=== PATIENT | male | born 1940 | race Caucasian/White ===

== ENCOUNTER 2018-01-02 08:22 | Outpatient (CLI) | payer MEDICARE ==
--- NOTE | 2018-01-02 11:52 | ULT ---
HEPATIC ULTRASOUND WITH DOPPLER: (Pierre scale, color flow, and spectral Doppler) Date: 01/02/18 FINDINGS: There is a 1.3 x 1.2 x 1.1 cm heterogeneous focus in the region of the left lobe of the liver. This c annot be said with certainty if this is real or artifactual from adjacent bowel. The 2.6 cm cyst in t he left lobe noted on the CT scan of 01/24/15 is not seen on this study. No intrahepatic ductal dilat ation is noted. The spleen measures 10.7 cm in length and is normal. No gallstones, gallbladder wall thickening, or p ericholecystic fluid is seen. The common duct measures 2.0 mm in diameter. The visualized portions of the pancreas are unremarkable. No free fluid is noted. There is normal flow and spectral waveforms i n the hepatic, portal, and splenic vasculature. IMPRESSION: Heterogeneous focus in the region of the left lobe of the liver. Recommend further evaluation with a triple phase CT scan of the abdomen. POS: [facility]
== END 2018-01-02 08:23 | disposition home or self-care (01) ==
LOC: BICULT 08:22
PROVIDERS: ATTEND Internal Medicine Gastroenterology
DX: S36.119A Unspecified injury of liver, initial encounter (principal); J02.9 Acute pharyngitis, unspecified
CPT/HCPCS: 76705

== ENCOUNTER 2018-12-11 20:38 | Emergency (ER) | payer MEDICARE ==
[2018-12-11] MEDS ORDERED: Adacel (T-DAP) 0.5 ML SYRINGE ONE (20:54)
--- NOTE | 2018-12-11 22:01 | CT ---
CT Brain WO Con History: Fall. Laceration. Comparison: CT brain 2015 Findings: No acute hemorrhage or infarct. No midline shift or mass effect. Ventricular size and extra -axial CSF spaces are normal. Old right cerebellar infarction. Paranasal sinuses and mastoids are clear. Mild right supraorbital soft tissue swelling. Visualized gl obes are intact. Impression: No acute posttraumatic intracranial sequelae.
[2018-12-11] MEDS ORDERED: Lidocaine 1% w/Epinephrine 1:100K 20 ML VIAL ONE (22:18)
[2018-12-11] MEDS ORDERED: Bacitracin 1 PK ONE (22:32)
== END 2018-12-11 22:41 ==
LOC: ERS 20:38
DX: S01.111A Laceration without foreign body of right eyelid and periocular area, initial encounter (principal); Z87.891 Personal history of nicotine dependence; W18.30XA Fall on same level, unspecified, initial encounter
CPT/HCPCS: 12011; 36415; 70450; 80307; 90471; 90715

== ENCOUNTER 2019-03-02 13:28 | Observation (INO) | payer MEDICARE ==
[~2019-03-02 13:28] MED LIST: Iopamidol-370 76% 500 ML 1 ML ONE
[2019-03-02 13:57] LABS: #Eosinphils 0.1 thou/uL (0.0-0.7); #Lymphocytes 2.6 thou/uL (1.20-3.40); #Neutrophils 10.4 thou/uL (1.40-6.50); %Basophils 0.2 % (0.0-1.0); %Lymphocytes 18.3 % (21.0-51.0); %Monocytes 7.1 % (0.0-10.0); %Neutrophils 73.4 % (42.0-75.0); Hemoglobin 14.3 g/dL (14.0-18.0); Mean Corpuscular HGB CONC 34.7 g/dL (32.0-36.0); Mean Corpuscular Hemoglobin 32.5 pg (27.0-31.0); Mean Corpuscular Volume 93.6 fL (78.0-98.0); Mean Platelet Volume 6.8 fL (7.4-10.4); Platelet Count 276 thou/uL (130-400); RBC Distribution Width 11.3 % (11.5-14.5); Red Blood Cell (RBC) Count 4.41 mill/uL (4.70-6.10); White Blood Cell (WBC) Count 14.2 thou/uL (4.8-10.8)
[2019-03-02 14:19] LABS: ALT (SGPT) 14 U/L (8-55); AST (SGOT) 16 U/L (5-34); Albumin 3.9 g/dL (3.4-4.8); Alkaline Phosphatase 68 U/L (40-110); Anion Gap 11 mmol/L (10-20); BUN (Urea Nitrogen) 10 mg/dL (8.4-25.7); Calc. Creatinine Clearance 0 mL/min (70-130); Calcium 8.7 mg/dL (7.8-10.44); Carbon Dioxide 25 mmol/L (23-31); Chloride 105 mmol/L (98-107); Estimated GFR-MDRD 55; Globulin 2.9 g/dL (2.4-3.5); Glucose 134 mg/dL (83-110); Potassium 3.8 mmol/L (3.5-5.1); Protein, Total 6.8 g/dL (5.8-8.1); Sodium 137 mmol/L (136-145)
[2019-03-02 14:34] LABS: Bilirubin Negative (Negative); Blood, Urine Negative (Negative); Clarity Clear (Clear); Glucose, Urine (Dipstick) Normal (Negative); Leukocyte Negative Leu/uL (Negative); Nitrite Negative (Negative); Protein, Urine (Dipstick) 10 mg/dL (Neg-Trace); Urobilinogen Normal mg/dL (Less than 2)
[2019-03-02] MEDS ORDERED: Morphine 4 MG/ML VIAL ONE ×2 (16:37→18:12)
[2019-03-02] MEDS ORDERED: Ondansetron PF 4 MG/2 ML Vial ONE (16:38)
--- NOTE | 2019-03-02 16:57 | RAD ---
Portable frontal chest radiograph: 03/02/2019 COMPARISON: 01/25/2015 HISTORY: Abdominal pain FINDINGS: Stable transvenous pacing device. Stable increased linear interstitial density with pulmona ry hyperinflation suggests COPD in the proper clinical setting. No pneumothorax, focal consolidation, or alveolar edema. There is slight blunting of the left costophrenic angle which may r epresent volume loss, scar, or small volume left pleural fluid. IMPRESSION: No focal consolidation or alveolar edema.
--- NOTE | 2019-03-02 17:29 | CT ---
CT angiogram of the chest and abdomen-dissection protocol: 03/02/2019 COMPARISON: None HISTORY: Tearing abdominal pain radiating to the back TECHNIQUE: Axial CT imaging at 2.5 mm intervals from the thoracic inlet through the superior aspect o f the sacrum with IV contrast using CT angiogram protocol. Coronal and sagittal 3-D reformatted imaging obtained. FINDINGS: No lymphadenopathy is noted within the chest. No pleural, pericardial, or mediastinal fluid is noted. There is a dual lead transvenous pacing device. No pneumothorax is noted. Emphysematous changes are noted with an upper lobe predominance bilaterally . There is an irregular cluster of reticular nodular density within the lingula, best seen on image 65, new when compared to a chest CT angiogram performed 01/24/2015. There is a pulmonary nodule on im age 61 within the left upper lobe measuring 6 mm, slightly increased in size when compared to the prior CT angiogram of the chest. No discrete pulmonary parenchymal mass lesion or nodule is noted within the right lung. Osseous structures of the chest demonstrate no acute findings. There is no evidence for aneurysm or d issection of the thoracic aorta. There is scattered atherosclerotic calcification of the descending thoracic aorta and coronary arteries. There is a subcentimeter hypodense lesion within the left lobe of the liver on image 94, too small to characterize, likely representing a small cyst. Limited assessment of the gallbladder is unremarkable. The spleen, pancreas, adrenal glands, and kidneys are unremarkable. There is diverticulosis of the descending colon with no evidence for diverticulitis. Only partially i lilibeth on this examination is a focal area of inflammatory change within the right lower quadrant adjacent to an incompletely imaged appendix. This may be related to appendicitis. CT examination of t he pelvis is advised. There is no evidence for aneurysm or dissection of the abdominal aorta. There is scattered atheroscle rotic calcification of the abdominal aorta and its branches. The celiac axis, the superior mesenteric artery, bilateral renal arteries, and the inferior mesenteri c artery are patent. There is multilevel lower lumbar spine facet hypertrophy. IMPRESSION: Right lower quadrant inflammatory change. Dedicated imaging of the pelvis is advised. This may be rel ated to appendicitis. No evidence for aneurysm or dissection of the abdominal or thoracic aorta. Left upper lobe pulmonary nodule for which follow-up CT examination of the chest in 6 months advised. Results called to Dr. An at 5:23 PM 03/02/2019.
--- NOTE | 2019-03-02 18:15 | CT ---
CT pelvis: 03/02/2019 HISTORY: Right lower quadrant inflammatory change noted on recent CT of the abdomen TECHNIQUE: Axial CT imaging at 5 mm intervals through the pelvis with coronal and sagittal reformatte d imaging. FINDINGS: There is atherosclerotic calcification of the distal abdominal aorta. Prostate gland is prominent. There is extensive diverticulosis of the descending and sigmoid colon. T here is prominent right lower quadrant inflammatory fat stranding. This abuts the appendix but the appendix appears grossly unremarkable otherwise. The sigmoid colon demonstrates wall thickening and t hus these findings are felt to most likely be on the basis of acute sigmoid diverticulitis. No right lower quadrant abscess is appreciated at this time. The exuberant prominent diverticula make it difficult to evaluate for microperforation. There could be a focal area of microperforation along the right lateral aspect of the inflamed sigmoid colon on axial image 16 but this could also simply r epresent a prominent diverticulum. Review of the osseous structures demonstrates prominent multilevel lower lumbar spine facet hypertrop hy. No worrisome lytic or blastic bone lesion. IMPRESSION: Findings most consistent with sigmoid diverticulitis within the right lower quadrant as d etailed above. Direct visualization via colonoscopy is advised following treatment of the acute symptoms.
[2019-03-02] MEDS ORDERED: Acetaminophen 325 MG TAB PO PRN (18:54)
[2019-03-02] MEDS ORDERED: Ondansetron PF 4 MG/2 ML Vial IVP PRN (19:09)
[2019-03-02] MEDS ORDERED: metroNIDAZOLE 500 MG/100 ML BAG ONE (19:38)
--- NOTE | 2019-03-02 19:45 | HP ---
CHIEF COMPLAINT: Abdominal pain. HISTORY OF PRESENT ILLNESS: This is an 78-year-old male with history of symptomatic bradycardia status post pacemaker in 2015, daily Valium and alcohol use, who presents to the emergency room with a complaint of abdominal pain. The patient reports the onset around 3:00 am, states he thought it was muscle pain from digging 2 days ago. He reports the pain is in his lower abdomen, worsening with movement, denies any relieving factors. He describes it as pressure without radiation and denies any prior history. He also denies any nausea, vomiting, urine changes, fevers, or chills. Because of the severity of pain rated as a 7/10, he presented to the emergency room. He denies any prior screening colonoscopy. In the emergency room, the patient underwent CT dissection protocol which was notable for inflammation, followed by a pelvic CT which shows diverticulitis. He received morphine 4 mg IV x2, Zofran 4 mg IV, normal saline 1 L. By report, Cipro and Flagyl IV are being ordered and hospitalist called for admission. The patient denies any prior history of colonoscopy. ALLERGIES: NO KNOWN DRUG ALLERGIES. CURRENT MEDICATIONS: The patient reports Valium 5 mg that he takes around 3:00 am if he has difficulty returning to sleep and states he 'washes it down' with wine , he estimates taking this around 3 times per week. PAST MEDICAL HISTORY: Symptomatic bradycardia with pacemaker insertion in 2015 at this hospital. PAST SURGICAL HISTORY: 1. Hernia repair. 2. Pacemaker in 2015. SOCIAL HISTORY: The patient reports 7-9 beers per day, reports that he starts drinking beer on his way home from the day to level out his mood, and drinks a glass of wine about 3 times per week. He lives with his , who was recently diagnosed with stage III lung cancer. He denies any current tobacco use, reports he quit smoking in the past. FAMILY HISTORY: Negative for any GI problems. REVIEW OF SYSTEMS: Negative for nausea, vomiting, urine changes, fevers, chills , chest pain, or shortness of breath. All remaining review of systems are reviewed and negative. PHYSICAL EXAMINATION: VITAL SIGNS: His blood pressure 146/82, pulse 82, respirations 16, temp 99.4, saturation 100% on room air. GENERAL: Awake, alert, responsive, in no apparent distress. HEENT: No scleral icterus. Oral mucosa is pink and moist. NECK: Supple, nontender. LYMPHATICS: No palpable cervical or supraclavicular lymphadenopathy. LUNGS: Clear to auscultation bilateral. No audible wheezing, rhonchi, or rales. HEART: Normal S1 and S2. Regular rate. No significant murmurs. ABDOMEN: Soft, tenderness to palpation in the lower quadrants. No palpable abnormality. Present bowel sounds. EXTREMITIES: No clubbing, cyanosis, or edema. SKIN: No visible rashes. NEUROLOGIC: No focal deficits. PSYCH: Appears euthymic. VASCULAR: 2+ dorsalis pedis pulses. DIAGNOSTIC STUDIES: LABORATORY RESULTS: Reviewed. CBC; 14.2, 14.3, 41.32, 276. Renal panel; 137, 3.8, 105, 25, 10, 1.27, 134. LFTs are normal. Troponin 0.024. Urinalysis negative. EKG, personally reviewed, paced rhythm. No ST changes. Chest x-ray is personally reviewed. No focal consolidation or alveolar edema. CT dissection protocol, right lower quadrant inflammatory change with recommended pelvic CT, left upper lobe nodule, followup CT in [address] without contrast, findings consistent with sigmoid diverticulitis in the right lower quadrant. Recommend followup with colonoscopy after treatment of acute symptoms. IMPRESSION: 1. Acute diverticulitis in a patient without any prior history of colonoscopy. 2. Daily alcohol use. 3. Regular benzodiazepine use. 4. Incidental finding of left upper lobe nodule. Needs followup in the outpatient setting in [address] scan. 5. History of symptomatic bradycardia with pacemaker in place. PLAN: 1. Observation status in the hospital, I would anticipate the patient may be discharged tomorrow. 2. We will continue treating with IV pain medicine as needed and Zofran as needed. 3. IV fluid hydration, clear liquid diet as tolerated. 4. Monitor CBC and renal panel. 5. We will continue the Cipro and Flagyl IV until the patient is adequately taking p.o. Patient will need outpatient follow up with GI for consideration of colonoscopy. 6. Anticipated length of stay about 24 hours, the patient is asking to go home from the emergency room, however, has received 2 doses of IV morphine and do not recommend it. 7. ASE protocol given the regular daily alcohol use. The patient is asking about should he quit alcohol, I advised him that it is not helpful for his body and recommend that he continue the conversation with his primary care provider. 8. Valium will be ordered with the ASE protocol to continue for any signs of alcohol withdrawal, and to continue p.r.n. for anxiety. 9. DVT prophylaxis with pneumatic compression devices. 10. GI prophylaxis not indicated. 11. Code status is full. Surrogate decision maker, the patient states he speaks for himself. He declined choosing a surrogate decision maker. 12. Reviewed the plan of care with the patient who demonstrates understanding, no questions or further needs at the end of evaluation. Job ID: [id number] MTDD
[2019-03-03] MEDS ORDERED: Morphine 4 MG/ML VIAL ONE (01:36)
[2019-03-03] MEDS: Morphine 4 MG/ML VIAL SLOW IVP PRN ×3 (01:42→12:19)
[2019-03-03] MEDS ORDERED: metroNIDAZOLE 500 MG/100 ML BAG ONE (03:07)
[2019-03-03 03:15] LABS: #Eosinphils 0.2 thou/uL (0.0-0.7); #Lymphocytes 2.3 thou/uL (1.20-3.40); #Neutrophils 8.8 thou/uL (1.40-6.50); %Basophils 0.3 % (0.0-1.0); %Eosinophils 1.6 % (0.0-10.0); %Lymphocytes 18.8 % (21.0-51.0); %Monocytes 8.3 % (0.0-10.0); Hemoglobin 12.7 g/dL (14.0-18.0); Mean Corpuscular HGB CONC 33.9 g/dL (32.0-36.0); Mean Corpuscular Hemoglobin 32.5 pg (27.0-31.0); Mean Corpuscular Volume 95.7 fL (78.0-98.0); Platelet Count 241 thou/uL (130-400); RBC Distribution Width 11.4 % (11.5-14.5); Red Blood Cell (RBC) Count 3.91 mill/uL (4.70-6.10); White Blood Cell (WBC) Count 12.4 thou/uL (4.8-10.8)
[2019-03-03] MEDS: metroNIDAZOLE 500 MG in Premix Bag 1 BAG IVPB SCH ×2 (03:15→10:37)
[2019-03-03 03:39] LABS: Anion Gap 12 mmol/L (10-20); BUN (Urea Nitrogen) 10 mg/dL (8.4-25.7); Calc. Creatinine Clearance 0 mL/min (70-130); Calcium 7.9 mg/dL (7.8-10.44); Carbon Dioxide 24 mmol/L (23-31); Chloride 106 mmol/L (98-107); Estimated GFR-MDRD 59; Glucose 112 mg/dL (83-110); Potassium 3.7 mmol/L (3.5-5.1); Sodium 138 mmol/L (136-145)
[2019-03-03] MEDS: Sodium Chloride 0.9% 1,000 ML IV SCH ×2 (07:53→08:19)
[2019-03-03 08:09] VITALS: BMI 26.4
[2019-03-03 12:02] VITALS: BP 120/71; TEMP 97.9
--- NOTE | 2019-03-03 15:57 | PDISCHARGE ---
Discharge - Disposition Disposition: HOME - Ambulatory Orders Prescriptions: metroNIDAZOLE [Flagyl] 500 mg PO Q8HR 7 Days #21 tab Ciprofloxacin [Cipro] 500 mg PO BID 7 Days #14 tab - Patient Instructions Pre-Printed Education: High-Fiber Diet, Diverticulitis, [id number] Care Plan Goals: FOCUS: Transition from Acute Care after Discharge GOAL: Successful transition to care in the community YOUR TASKS: (1) review all information outlined in your discharge packet (2) follow any instructions outlined in your discharge packet (3) contact your primary care provider if you have questions or need additional assistance - Referrals and PCP Follow-Up Referrals and PCP Follow-Up: Daiana Muniz NP [Primary Care Provider] - 7 Days - Activity Instructions Activity:: Activity as Tolerated - Nourishment Instructions Nourishment:: Heart Healthy Diet Course - Course Orders, Labs, Meds: Patient presenting initially with abdominal pain, admitted for acute diverticulitis. WBC count elevated at 14 with clinical ab pain. CT study in the ED demonstrates sigmoid diverticulitis in the right lower quadrant. Patient placed on IV abx. Shown improvement in clinical symptoms. Will be discharged to finish PO abx in the outpatient. Incidental lung nodule found on CT. Patient to schedule follow up with PCP for evaluation of this problem. All questions were answered and patient understood. Depart/Diagnosis - Departure Instructions: High-Fiber Diet, Diverticulitis, [id number] Referrals: Daiana Muniz NP [Primary Care Provider] - 7 Days Prescriptions: metroNIDAZOLE [Flagyl] 500 mg PO Q8HR 7 Days #21 tab Ciprofloxacin [Cipro] 500 mg PO BID 7 Days #14 tab - Diagnosis Condition: Good Disposition: HOME - Forms
[2019-03-04] MEDS ORDERED: Prevnar 13-Val Conj/PF 0.5 ML SYRINGE IM ONE (10:30)
== END 2019-03-03 16:12 | disposition home or self-care (01) ==
LOC: ERS 13:28 → ERHOLD 19:27 → INTOOBSV 19:27 → SURG A 03-03 06:16
PROVIDERS: ADMIT Family Medicine; ATTEND Family Medicine
DX: K57.32 Diverticulitis of large intestine without perforation or abscess without bleeding (principal); R91.1 Solitary pulmonary nodule; R00.1 Bradycardia, unspecified; Z87.891 Personal history of nicotine dependence; Z79.82 Long term (current) use of aspirin; Z79.899 Other long term (current) drug therapy; Z95.0 Presence of cardiac pacemaker
CPT/HCPCS: 71045; 71275; 72191; 72192; 74175; 80048; 80053; 81003; 83690; 84484; 85025 ×2; 93005; 94760; 96361; 96365; 96366; 96367 ×2; 96375; 96376 ×2; 99285; G0378 ×3; 36415; J0744; J2270; J2405; Q9967

== ENCOUNTER 2019-05-01 09:12 | Outpatient (CLI) | payer MEDICARE ==
--- NOTE | 2019-05-01 09:34 | RAD ---
XR Chest Pa Lat @ [facility] History: Dyspnea Comparison: Radiograph 2019 Findings: Dual-lead pacer similar. No pneumothorax. No effusion. No acute osseous abnormality. Cardia c silhouette and mediastinal contours are within normal limits. Impression: No acute intrathoracic abnormality.
== END 2019-05-01 09:13 | disposition home or self-care (01) ==
LOC: RAD 09:12
PROVIDERS: ATTEND Internal Medicine Critical Care Medicine
DX: R06.00 Dyspnea, unspecified (principal)
CPT/HCPCS: 71046

== ENCOUNTER 2020-04-26 09:34 | Outpatient (CLI) | payer MEDICARE ==
--- NOTE | 2020-04-26 10:30 | CT ---
CT Chest W Con History: Pulmonary nodule Comparison: Chest radiograph 2019. CTA March 02, 2019 Findings: CT chest performed after the intravenous ministration of contrast. 3-D rendering provided. No significant growth of the 5 to 6 mm lingular pulmonary nodule. No new suspicious pulmonary nodule. No pneumothorax. Mild lung hypoinflation atelectatic changes in the lung bases. Thoracic spine is intact. Sternum and manubrium are intact. Upper abdomen is unremarkable. Cyst hepatic segment 2. No acute inflammatory process within the upper abdomen. Extensive diverticular disease descending colon. No mediastinal adenopathy. There is an narrowing of the left subclavian artery just after its origin for length of 2 cm just before the vertebral artery origin. No acute osseous abnormality. No displaced rib fracture. Impression: 1. No significant growth of the 5-6 cm pulmonary nodule indicating benignity. 2. No acute inflammatory process in the chest.
[2020-04-26] MEDS ORDERED: Iopamidol 370 76% 100 ML VIAL ONE (11:11)
== END 2020-04-26 09:35 | disposition home or self-care (01) ==
LOC: BICCT 09:34
PROVIDERS: ATTEND Internal Medicine Critical Care Medicine
DX: R91.1 Solitary pulmonary nodule (principal)
CPT/HCPCS: 71260; 82565; Q9967

== ENCOUNTER 2024-10-29 11:34 | Emergency (ER) | payer MEDICARE, OTHER ==
[2024-10-29] MEDS ORDERED: Boostrix 0.5 ML (Tdap) VIAL (>/=7 yrs of age) ONE (12:14)
== END 2024-10-29 12:26 | disposition home or self-care (01) ==
LOC: ERS 11:34
DX: L03.114 Cellulitis of left upper limb (principal); Z23 Encounter for immunization
CPT/HCPCS: 87070; 87077; 87205; 90471; 90715